=== PATIENT | female | born 1990 | race Caucasian/White ===

== ENCOUNTER → 2020-10-12 | Day surgery (SDC) | payer OTHER ==
[~2020-10-12] MED LIST: PERCOCET 5-3251 EACH PO; VOLTAREN **OUT50 MG PO
[2020-10-12 09:45] LABS: HCG (URINE) SCREEN NEGATIVE (NEGATIVE)
== END | disposition home or self-care (01) ==
LOC: FAS 09:30
PROVIDERS: Orthopaedic Surgery
DX: M24.661 Ankylosis, right knee (principal); E66.9 Obesity, unspecified; Z68.32 Body mass index [BMI] 32.0-32.9, adult; Z88.0 Allergy status to penicillin; Z98.890 Other specified postprocedural states
CPT/HCPCS: 84703; 97162; 97530-GP; J1100; J1170; J2250; J2405; J2704; J2795; J3010; J7120